=== PATIENT | female | born 1990 | race Two or more races ===

== ENCOUNTER 2021-02-02 13:15 | Outpatient (CLI) | payer BC | END 2021-02-02 23:59 | disposition home or self-care (01) | LOC: WOU 13:15 | PROVIDERS: ATTEND Surgery | DX: N62 Hypertrophy of breast (principal); L30.4 Erythema intertrigo; M54.2 Cervicalgia; M54.6 Pain in thoracic spine; E03.9 Hypothyroidism, unspecified | CPT/HCPCS: G0463 ==

== ENCOUNTER 2021-04-13 13:20 | Outpatient (CLI) | payer BC | END 2021-04-13 23:59 | disposition home or self-care (01) | LOC: WOU 13:20 | PROVIDERS: ATTEND Surgery | DX: N62 Hypertrophy of breast (principal); L30.4 Erythema intertrigo; M54.2 Cervicalgia; M54.6 Pain in thoracic spine; E03.9 Hypothyroidism, unspecified | CPT/HCPCS: G0463 ==

== ENCOUNTER 2021-09-07 13:10 | Outpatient (CLI) | payer BC | END 2021-09-07 23:59 | disposition home or self-care (01) | LOC: WOU 13:10 | PROVIDERS: ATTEND Surgery | DX: N62 Hypertrophy of breast (principal); L30.4 Erythema intertrigo; E66.8 Other obesity; Z68.31 Body mass index [BMI] 31.0-31.9, adult; E03.9 Hypothyroidism, unspecified | CPT/HCPCS: G0463 ==

== ENCOUNTER 2022-01-25 13:30 | Outpatient (CLI) | payer BC | END 2022-01-25 23:59 | disposition home or self-care (01) | LOC: WOU 13:30 | PROVIDERS: ATTEND Surgery | DX: N62 Hypertrophy of breast (principal); L30.4 Erythema intertrigo; E03.9 Hypothyroidism, unspecified; E66.8 Other obesity; Z68.31 Body mass index [BMI] 31.0-31.9, adult | CPT/HCPCS: G0463 ==

== ENCOUNTER 2023-02-21 07:23 | Day surgery (SDC) | payer BC ==
[~2023-02-21] VITALS: Ht 157.5 cm; Wt 70.8 kg
[2023-02-21] MEDS ORDERED: ANESTHESIA TRAY IN PYXIS 1 EA TRAY MC ONE ×2 (08:18→14:17)
[2023-02-21 08:49] LABS: PREGNANCY TEST URINE QUAL NEGATIVE (NEGATIVE)
[2023-02-21] MEDS ORDERED: FENTANYL PF 250MCG/5ML AMPUL ONE (08:56)
[2023-02-21] MEDS ORDERED: ROCURONIUM BROMIDE 50 MG/5 ML ONE ×2 (08:57)
[2023-02-21] MEDS ORDERED: BUPIVACAINE 0.25% 75 MG/30 ML VIAL ONE (09:31)
[2023-02-21] MEDS ORDERED: LIDOCAINE 1%-EPI 1:100,000 20 ML VIAL ONE (09:31)
[2023-02-21] MEDS ORDERED: FENTANYL PF 100MCG/2ML AMPUL ONE (13:44)
[2023-02-21] MEDS ORDERED: HYDROCODONE/APAP 5/325MG TABLET PO PRN (15:00)
[2023-02-21 16:00] VITALS: BP 127/80; TEMP 97.3; O2SAT 96
== END 2023-02-21 18:00 | disposition home or self-care (01) ==
LOC: DS 07:23 → UNDOADMIN 07:24 → MED 07:24 → UNDODISIN 17:10 → DS 18:00
PROVIDERS: ATTEND Surgery
DX: N62 Hypertrophy of breast (principal); L30.4 Erythema intertrigo; E03.9 Hypothyroidism, unspecified; Z79.899 Other long term (current) drug therapy
CPT/HCPCS: 19318; 84703; 88305; A4223; A6253; J0690; J1885; J2704; J3010; J3490; J7030; G0378